=== PATIENT | female | born 1980 | race American Indian/Alaskan Native ===

== ENCOUNTER 2016-11-13 10:40 | Inpatient (IN) | payer BC ==
[~2016-11-13] VITALS: Ht 175.3 cm; Wt 119.3 kg
[2016-11-13] VITALS (9 sets, daily range): BP systolic 101–119; BP diastolic 56–88
[2016-11-13] MEDS ORDERED: SUMA100T3 PO (11:21)
[2016-11-13] MEDS ORDERED: CETI10CA PO (11:22)
[2016-11-13] MEDS ORDERED: MULT1TAB52 PO (11:23)
[2016-11-13] MEDS ORDERED: FLUT9.9S NS (11:23)
[2016-11-13] MEDS ORDERED: DIPH25CA58 PO (11:24)
[2016-11-13] MEDS ORDERED: NAPR220C4 PO (11:24)
[2016-11-13] MEDS: IV RINGERS,LACTATED 1000ML 1,000 ML IV SCH (11:29)
[2016-11-13 11:39] LABS: NEG OBC UR NEG; POS OBC UR POS
[2016-11-13] MEDS ORDERED: SURGICEL HEMOSTAT 4X8 EACH. ONE (12:03)
[2016-11-13] MEDS ORDERED: BUPIVACAINE-EPI 0.5%-1:200000 50 ML VIAL. ONE (12:03)
[2016-11-13] MEDS ORDERED: IOHEXOL 300 MG/ML 50 ML VIAL. ONE (12:03)
[2016-11-13] MEDS ORDERED: PROPOFOL 20 ML IV ONE (13:35)
[2016-11-13] MEDS ORDERED: LIDOCAINE 2% PF Vial for OR 5 ML VIAL. ONE (13:36)
[2016-11-13] MEDS ORDERED: DEXAMETHASONE SOD PHOS 20 MG/5 ML VIAL. ONE (13:36)
[2016-11-13] MEDS ORDERED: ONDANSETRON PF 4 MG/2 ML VIAL. ONE ×2 (13:36→15:39)
[2016-11-13] MEDS ORDERED: MIDAZOLAM HCL/PF 2 MG/2 ML VIAL. ONE (13:39)
[2016-11-13] MEDS ORDERED: fentaNYL PF VIAL 250 MCG/5 ML VIAL ONE (13:40)
--- NOTE | 2016-11-13 15:18 | RAD ---
Indication operative cholangiogram. Protocol study. Assess for choledocholithiasis. Assess for variant anatomy. For members of the Department of surgery fluoroscopy was provided. 5 fluoroscopic spot images were obtained. Fluoroscopy time associated with the imaging was 30 seconds. On all of the images obtained there is a well-defined oval filling defect in the distal common bile duct, in the area of the ampulla, suggesting choledocholithiasis. Some contrast is seen in the duodenum. IMPRESSION: Filling defect, suggesting choledocholithiasis, in the distal common bile duct
[2016-11-13] MEDS ORDERED: NEOSTIGMINE 10 MG/10 ML VIAL. ONE (15:23)
[2016-11-13] MEDS ORDERED: GLYCOPYRROLATE 1 MG/5 ML VIAL. ONE (15:23)
[2016-11-13] MEDS ORDERED: SEVOFLURANE 61 TO 120 MINUTES. IH ONE (15:39)
[2016-11-13] MEDS ORDERED: KETOROLAC 30 MG/ML INJ FOR OR. INJ ONE (15:47)
[2016-11-13] MEDS: IV 1/2 NORMAL SALINE 1,000 ML IV SCH (15:53)
[2016-11-13] MEDS ORDERED: IV RINGERS,LACTATED 1000ML 1,000 ML IV SCH (15:54)
[2016-11-13] MEDS ORDERED: LIDOCAINE 1% 1 ML SYRINGE. ID PRN (16:00)
[2016-11-13] MEDS ORDERED: fentaNYL PF VIAL 100 MCG/2 ML VIAL IV PRN ×2 (16:00)
[2016-11-13] MEDS ORDERED: DEXTROSE 50% 25 GM / 50ML DISP.SYRIN. IV PRN (16:00)
[2016-11-13] MEDS ORDERED: 0.9 % SODIUM CHLORIDE 10 ML DISP.SYRIN. IV PRN (16:00)
[2016-11-13] MEDS ORDERED: MORPHINE SULFATE 2 MG/ML DISP.SYRIN. IV PRN (16:00)
[2016-11-13] MEDS ORDERED: ONDANSETRON PF 4 MG/2 ML VIAL. IV PRN (16:00)
--- NOTE | 2016-11-13 16:01 | PDOC4 ---
Operative Note Operative Note Operative Note: Preoperative Diagnosis: Symptomatic cholelithiasis Postoperative Diagnosis: Symptomatic cholelithiasis, choledocholithiasis Procedure: Laparoscopic cholecystectomy with intraoperative cholangiogram Surgeons: Farzad Drivers License Examiner: Wendy RING Anesthesia: Gen. Estimated Blood Loss: 20 mL Specimen: Gallbladder to pathology Drains: 19 Swazi round Ramon drain to right upper quadrant Complications: None Indications: The patient is a 36-year-old female who is been experiencing recurrent upper abdominal pain consistent with biliary colic. Her evaluation showed multiple gallstones. Surgical treatment was offered by means of a laparoscopic cholecystectomy. The risks of surgery were discussed which include bleeding, infection, bile duct injury, bile leak, pain, the potential for additional surgeries or procedures. The patient understands and would like to proceed. Description: The patient was taken to the operating room and laid supine on the operating table. General anesthesia was performed. The abdomen was prepped with ChloraPrep and draped in a standard surgical fashion. A small infraumbilical incision was made with a scalpel. The Veress needle was then inserted and a pneumoperitoneum was then created. A 5 mm trocar was then inserted and the laparoscope was introduced. In the upper midabdomen a 5 mm trocar was inserted and in the right upper quadrant two 2.3 mm mini lap graspers were inserted. The gallbladder was retracted cephalad. The cystic duct was dissected free from surrounding tissues. One clip was placed on the duct near the gallbladder junction. An opening was made in the duct and a cholangiocatheter placed within and secured with a clip. Using contrast dye and fluoroscopy an intraoperative cholangiogram was performed. Contrast did pass readily into the duodenum however there appeared to be a filling defect in the distal common bile duct suggesting choledocholithiasis. The clip and catheter were then withdrawn. Three clips were placed on the cystic duct and it was divided. The cystic artery was then identified, dissected free, doubly clipped and divided as well. The gallbladder was then mobilized away from the liver with cautery. The superior abdominal 5 millimeter trocar was exchanged for an 11 millimeter trocar. The gallbladder was then placed in an endoscopic bag and extracted at the superior trocar site. To assist with extraction of the gallbladder many of the stones were crushed and removed. The fascia there was closed with an 0 Vicryl suture. A 19 Swazi round Ramon drain was left in the gallbladder fossa with an exit site in the right port incision. This was secured to the skin with 2-0 silk. All blood and irrigation fluid was suctioned and hemostasis was good. The remaining ports were removed and the pneumoperitoneum was relieved. The skin incisions were injected with half percent Marcaine with epinephrine, and all were closed using 4-0 Monocryl suture. Steri-Strips and dressings were then applied. The patient tolerated the procedure well and was sent to the recovery room in stable condition. At the end of the case all counts were correct. STEVE SMITH MD Nov 13, 2016 16:01
[2016-11-13] MEDS: PROCHLORPERAZINE 10 MG/2 ML VIAL. IV PRN ×2 (16:10→16:22)
[2016-11-13] MEDS ORDERED: HYDROmorphone 2 MG/ML VIAL ONE (16:17)
[2016-11-13] MEDS: HYDROmorphone 2 MG/ML VIAL IV PRN ×4 (16:23→17:14)
[2016-11-13] MEDS ORDERED: SCOPOLAMINE 1.5MG PATCH. TD ONE (16:45)
[2016-11-14] MEDS: IV RINGERS,LACTATED 1000ML 1,000 ML IV SCH ×3 (00:50→14:10)
[2016-11-14 03:00] VITALS: BP 117/72
--- NOTE | 2016-11-14 05:17 | ACF ---
Admission Forms Criteria ABDOMINAL PAIN Clinical Indications for Admission to Inpatient Care ( tejon/check or initial the applicable condition/criteria): Admission is indicated for ANY ONE of the following (1)(2)(3)(4)(5)(6): [X]I. Surgery needed that cannot be performed on ambulatory basis [ ]II. Peritoneal signs present (eg, rebound tenderness, rigidity) [ ]III. Evaluation requires patient to not eat or drink for extended period ( eg, more than 24 hours). [ ]IV. Inpatient admission required[B] rather than observation care (see Abdominal Pain: Observation Care guideline as appropriate) because of ANY ONE of the following(7)(8)(9): [ ] a) Hemodynamic instability [ ]b) Severe pain requiring acute inpatient management [ ]c) Identification of etiology or finding that requires inpatient care (eg, aortic dissection, free air,bowel ischemia)(10) [ ]d) Absent bowel sounds with complete ileus (11) [ ]e) Signs of intestinal obstruction[C] [ ]f) Suspected toxic megacolon [ ]g) Severe electrolyte abnormalities requiring inpatient care [ ]h) High fever or infection requiring inpatient admission as indicated by ANY ONE of the following (12)(13): [ ]i) Appropriate outpatient or observation care antimicrobial treatment unavailable, not effective, or not feasible [ ]ii) Documented bacteremia [ ]iii) Temperature greater than 104.9 degrees F (40.5 degrees C) (oral) [ ]iv) Temperature greater than 103.1 degrees F (39.5 degrees C) ( oral) or less than 96.8 degrees F (36 degrees C) (rectal) that does not respond to all emergency treatment measures [ ]i) IV fluid required rather than oral rehydration to replace significant ongoing (eg, for greater than 24 hours) losses (greater than 3 L/m2 per day)(14)(15) [ ]j) Percutaneous or open drainage (eg, abscess, biliary tract) procedures [ ]k) Parenteral nutrition regimen that must be implemented on inpatient basis [ ]l) Other condition, treatment, or monitoring requiring inpatient admission Extended stay beyond goal length of stay may be needed for (1)(3)(4)(10)(16): [ ]a) Surgery (e.g., colectomy, revascularization procedure) [ ]b) Persistent abdominal pain with suspected intra-abdominal process [ ]c) Diagnosed condition requiring continued stay (e.g., pancreatitis, complicated diverticulitis) The original [facility] content created by [facility] has been revised. The portions of the content which have been revised are identified through the use of italic text, and [facility] has neither reviewed nor approved the modified material.All other unmodified content is copyright [facility]. Please see references footnoted in the original [facility] edition 2014 Admission Criteria Met?: Yes ROSS WOODRUFF Nov 14, 2016 05:17
[2016-11-14] MEDS: IV 1/2 NORMAL SALINE 1,000 ML IV SCH ×2 (05:56→14:59)
[2016-11-14] MEDS: ONDANSETRON PF 4 MG/2 ML VIAL. IV PRN (05:59)
[2016-11-14] MEDS: oxyCODONE/APAP 5/325 1 TAB TABLET PO PRN ×3 (05:59→19:21)
[2016-11-14 07:00] VITALS: BP 111/69
[2016-11-14 09:08] LABS: BASO % 0 % (0-3); EOS % 0 % (0-3); HEMATOCRIT 38.2 % (36.0-47.0); LYMPH # 0.9 x10^3/uL (1.0-4.8); LYMPH % 8 % (24-48); MEAN CORPUSCULAR HEMOGLOBIN 32 pg (25-35); MEAN CORPUSCULAR HGB CONC 34 g/dL (31-37); MEAN CORPUSCULAR VOLUME 94 fL (79-100); MONO % 5 % (0-9); NEUT % 87 % (31-73); PLATELET COUNT 317 x10^3/uL (140-400); RED BLOOD COUNT 4.06 x10^6/uL (3.50-5.40); RED CELL DISTRIBUTION WIDTH 12.7 % (11.5-14.5)
[2016-11-14 09:26] LABS: ALBUMIN 3.2 g/dL (3.4-5.0); ALBUMIN/GLOBULIN RATIO 0.8 (1.0-1.7); CALCIUM 8.8 mg/dL (8.5-10.1); CREATININE 0.7 mg/dL (0.6-1.0); GFR 94.2; POTASSIUM 3.9 mmol/L (3.5-5.1); TOTAL BILIRUBIN 0.6 mg/dL (0.2-1.0)
--- NOTE | 2016-11-14 09:26 | PDOC2 ---
GI CONSULT Reason For Consult: Choledocholithiasis HPI: HPI: 36 y/o female who underwent lap regan yesterday w/ Dr. Panda for symptomatic cholelithiasis. IOC suggestive of choledocholithiasis. Has had upper abd pain , vomiting, and new onset acid reflux x 3 weeks. This morning has epigastric/ right chest discomfort. No previous EGD or colonoscopy. No liver or pancreatic history. Tried pantoprazole and Mylanta for reflux, hasn't needed in a few days. No NSAIDs. Is NPO this morning. PMH: PMH: migraines, appendectomy FH: Family History: No pertinent hx (denies GI cancers) Social History: Smoke: No ALCOHOL: none Drugs: None ROS: GEN: Denies fevers, chills, sweats HEENT: Denies blurred vision, sore throat CV: Denies chest pain RESP: Denies shortness of air, cough GI: Per HPI : Denies hematuria, dysuria ENDO: Denies weight changes NEURO: Denies confusion, dizziness MSK: Denies weakness, joint pain/swelling SKIN: Denies jaundice, pruritus Vitals: Vitals: Vital Signs Date Time Temp Pulse Resp B/P (MAP) Pulse Ox O2 Delivery O2 Flow Rate FiO2 11/14/16 07:00 98.1 67 18 111/69 (83) 91 Room Air 98.1 11/13/16 20:00 2.0 Labs: Labs: Laboratory Tests Test 11/13/16 10:55 11/14/16 08:50 Urine Test Negative (NEG) White Blood Count 11.0 x10^3/uL (4.0-11.0) Red Blood Count 4.06 x10^6/uL (3.50-5.40) Hemoglobin 13.0 g/dL (12.0-15.5) Hematocrit 38.2 % (36.0-47.0) Mean Corpuscular Volume 94 fL (79-100) Mean Corpuscular Hemoglobin 32 pg (25-35) Mean Corpuscular Hemoglobin Concent 34 g/dL (31-37) Red Cell Distribution Width 12.7 % (11.5-14.5) Platelet Count 317 x10^3/uL (140-400) Neutrophils (%) (Auto) 87 % (31-73) Lymphocytes (%) (Auto) 8 % (24-48) Monocytes (%) (Auto) 5 % (0-9) Eosinophils (%) (Auto) 0 % (0-3) Basophils (%) (Auto) 0 % (0-3) Neutrophils # (Auto) 9.6 x10^3uL (1.8-7.7) Lymphocytes # (Auto) 0.9 x10^3/uL (1.0-4.8) Monocytes # (Auto) 0.5 x10^3/uL (0.0-1.1) Eosinophils # (Auto) 0.0 x10^3/uL (0.0-0.7) Basophils # (Auto) 0.0 x10^3/uL (0.0-0.2) Allergies: Coded Allergies: Penicillins (Verified Allergy, Severe, ANAPHYLAXIS, 11/13/16) cephalexin (Verified Allergy, Severe, THROAT SWELLED UP, 11/13/16) cranberry (Verified Allergy, Severe, Can't breath, swelled up, 11/13/16) erythromycin base (Verified Allergy, Severe, ANAPHYLAXIS, 11/13/16) honey (Verified Allergy, Severe, Can't breath,swelled up, 11/13/16) latex (Verified Allergy, Severe, CAN'T BREATH, WELTS, 11/13/16) nick (Verified Allergy, Severe, Can't breath, swelled up, 11/13/16) nickel (Verified Allergy, Severe, Full of rash on site,itching, 11/13/16) sulfamethoxazole (Verified Allergy, Severe, ANAPHYLAXIS, 11/13/16) trimethoprim (Verified Allergy, Severe, ANAPHYLAXIS, 11/13/16) Medications: Current Medications Medications (Trade) Dose Ordered Sig/Elia Route PRN Reason Start Time Stop Time Status Last Admin Dose Admin Ringer's Solution 1,000 ml @ 75 mls/hr [id number] IV 11/13/16 11:30 11/13/16 11:29 Iohexol (Omnipaque 300 Mg/ml) 50 ml STK-MED ONCE .ROUTE 11/13/16 12:03 11/13/16 12:04 DC 11/13/16 15:06 Bupivacaine HCl/ Epinephrine Bitart (Marcaine-Epi 0.5%-1:[id number]) 50 ml STK-MED ONCE .ROUTE 11/13/16 12:03 11/13/16 12:04 DC 11/13/16 14:37 Hydromorphone HCl (Dilaudid) 0.5 mg PRN Q10MIN PRN IV SEV PAIN, Second choice 11/13/16 16:00 11/13/16 22:00 DC 11/13/16 17:14 Prochlorperazine Edisylate (Compazine) 5 mg PACU PRN PRN IV NAUSEA, MRX1 11/13/16 16:00 11/13/16 22:00 DC 11/13/16 16:22 Sodium Chloride 1,000 ml @ 80 mls/hr [id number] IV 11/13/16 15:53 11/14/16 05:56 Oxycodone/ Acetaminophen (Percocet 5/325) 1 tab PRN Q4HRS PRN PO MILD PAIN, 1ST CHOICE 11/13/16 16:00 11/14/16 05:59 Ondansetron HCl (Zofran) 4 mg PRN Q6HRS PRN IV NAUESA, 1ST CHOICE 11/13/16 16:00 11/14/16 05:59 Scopolamine (Transderm-Scop) 1 patch 1X ONCE TD 11/13/16 16:45 11/13/16 16:48 DC 11/13/16 16:45 Imaging: Imaging: IOC 11/13/16 IMPRESSION: Filling defect, suggesting choledocholithiasis, in the distal common bile duct. PE: GEN: NAD, whispers, overweight HEENT: Atraumatic, PERRL LUNGS: CTAB HEART: RRR ABD: BS quiet, diffusely tender to even placement of stethoscope, drain serosang EXTREMITY: No edema SKIN: No rashes, no jaundice NEURO/PSYCH: A & O 3 A/P: A/P: S/p cholecystectomy 11/13/16 Choledocholithiasis Upper abd pain -- Keep NPO. Checking CBC, CMP, INR. ERCP this afternoon - d/w RN, GI lab. NAVARRO HIGUERA Nov 14, 2016 09:26
[2016-11-14 09:41] LABS: DIRECT BILIRUBIN 0.2 mg/dL (0.0-0.2)
[2016-11-14 09:42] LABS: INR 1.1 (0.8-1.1); PROTHROMBIN TIME PATIENT 13.9 SEC (11.7-14.0)
[2016-11-14 09:50] LABS: PLT ESTIMATE ADEQUATE (ADEQUATE)
[2016-11-14] MEDS: HYDROmorphone 2 MG/ML VIAL IV PRN ×2 (10:26→14:56)
[2016-11-14 11:00] VITALS: BP 103/55
[2016-11-14] MEDS ORDERED: levoFLOXacin 500mg PREMIX 500 MG/100 ML BAG IV ONE (12:02)
[2016-11-14] MEDS ORDERED: fentaNYL PF VIAL 100 MCG/2 ML VIAL ONE (12:07)
[2016-11-14] MEDS ORDERED: LIDOCAINE 2% PF Vial for OR 5 ML VIAL. ONE (12:07)
[2016-11-14] MEDS ORDERED: PROPOFOL 20 ML IV ONE (12:07)
[2016-11-14] MEDS ORDERED: SUCCINYLCHOLINE 200 MG/10 ML VIAL. ONE (12:08)
[2016-11-14] MEDS ORDERED: IOHEXOL 300 MG/ML 50 ML VIAL. ONE (12:13)
--- NOTE | 2016-11-14 13:03 | PDOC ---
DANIEL LEWIS ORDERING BOX OPERATOR 11/14/16 1303: SURGICAL PROGRESS NOTE Subjective pt not seen down for ERPC will FU in AM Vital Signs Vital Signs Date Time Temp Pulse Resp B/P (MAP) Pulse Ox O2 Delivery O2 Flow Rate FiO2 11/14/16 11:55 99 80 18 96 99.0 11/14/16 11:55 Room Air 2.0 11/14/16 11:00 103/55 (71) Labs Laboratory Tests Test 11/13/16 10:55 11/14/16 08:50 Urine Test Negative (NEG) White Blood Count 11.0 x10^3/uL (4.0-11.0) Red Blood Count 4.06 x10^6/uL (3.50-5.40) Hemoglobin 13.0 g/dL (12.0-15.5) Hematocrit 38.2 % (36.0-47.0) Mean Corpuscular Volume 94 fL (79-100) Mean Corpuscular Hemoglobin 32 pg (25-35) Mean Corpuscular Hemoglobin Concent 34 g/dL (31-37) Red Cell Distribution Width 12.7 % (11.5-14.5) Platelet Count 317 x10^3/uL (140-400) Neutrophils (%) (Auto) 87 % (31-73) Lymphocytes (%) (Auto) 8 % (24-48) Monocytes (%) (Auto) 5 % (0-9) Eosinophils (%) (Auto) 0 % (0-3) Basophils (%) (Auto) 0 % (0-3) Neutrophils # (Auto) 9.6 x10^3uL (1.8-7.7) Lymphocytes # (Auto) 0.9 x10^3/uL (1.0-4.8) Monocytes # (Auto) 0.5 x10^3/uL (0.0-1.1) Eosinophils # (Auto) 0.0 x10^3/uL (0.0-0.7) Basophils # (Auto) 0.0 x10^3/uL (0.0-0.2) Segmented Neutrophils % 87 % (35-66) Band Neutrophils % 3 % (0-9) Lymphocytes % 6 % (24-48) Monocytes % 4 % (0-10) Platelet Estimate Adequate (ADEQUATE) Prothrombin Time 13.9 SEC (11.7-14.0) Prothromb Time International Ratio 1.1 (0.8-1.1) Sodium Level 139 mmol/L (136-145) Potassium Level 3.9 mmol/L (3.5-5.1) Chloride Level 105 mmol/L (98-107) Carbon Dioxide Level 27 mmol/L (21-32) Anion Gap 7 (6-14) Blood Urea Nitrogen 9 mg/dL (7-20) Creatinine 0.7 mg/dL (0.6-1.0) Estimated GFR (Cockcroft-Gault) 94.2 BUN/Creatinine Ratio 13 (6-20) Glucose Level 115 mg/dL (70-99) Calcium Level 8.8 mg/dL (8.5-10.1) Total Bilirubin 0.6 mg/dL (0.2-1.0) Direct Bilirubin 0.2 mg/dL (0.0-0.2) Aspartate Amino Transf (AST/SGOT) 37 U/L (15-37) Alanine Aminotransferase (ALT/SGPT) 63 U/L (14-59) Alkaline Phosphatase 72 U/L (46-116) Total Protein 7.0 g/dL (6.4-8.2) Albumin 3.2 g/dL (3.4-5.0) Albumin/Globulin Ratio 0.8 (1.0-1.7) Laboratory Tests Test 11/14/16 08:50 White Blood Count 11.0 x10^3/uL (4.0-11.0) Red Blood Count 4.06 x10^6/uL (3.50-5.40) Hemoglobin 13.0 g/dL (12.0-15.5) Hematocrit 38.2 % (36.0-47.0) Mean Corpuscular Volume 94 fL (79-100) Mean Corpuscular Hemoglobin 32 pg (25-35) Mean Corpuscular Hemoglobin Concent 34 g/dL (31-37) Red Cell Distribution Width 12.7 % (11.5-14.5) Platelet Count 317 x10^3/uL (140-400) Neutrophils (%) (Auto) 87 % (31-73) Lymphocytes (%) (Auto) 8 % (24-48) Monocytes (%) (Auto) 5 % (0-9) Eosinophils (%) (Auto) 0 % (0-3) Basophils (%) (Auto) 0 % (0-3) Neutrophils # (Auto) 9.6 x10^3uL (1.8-7.7) Lymphocytes # (Auto) 0.9 x10^3/uL (1.0-4.8) Monocytes # (Auto) 0.5 x10^3/uL (0.0-1.1) Eosinophils # (Auto) 0.0 x10^3/uL (0.0-0.7) Basophils # (Auto) 0.0 x10^3/uL (0.0-0.2) Segmented Neutrophils % 87 % (35-66) Band Neutrophils % 3 % (0-9) Lymphocytes % 6 % (24-48) Monocytes % 4 % (0-10) Platelet Estimate Adequate (ADEQUATE) Prothrombin Time 13.9 SEC (11.7-14.0) Prothromb Time International Ratio 1.1 (0.8-1.1) Sodium Level 139 mmol/L (136-145) Potassium Level 3.9 mmol/L (3.5-5.1) Chloride Level 105 mmol/L (98-107) Carbon Dioxide Level 27 mmol/L (21-32) Anion Gap 7 (6-14) Blood Urea Nitrogen 9 mg/dL (7-20) Creatinine 0.7 mg/dL (0.6-1.0) Estimated GFR (Cockcroft-Gault) 94.2 BUN/Creatinine Ratio 13 (6-20) Glucose Level 115 mg/dL (70-99) Calcium Level 8.8 mg/dL (8.5-10.1) Total Bilirubin 0.6 mg/dL (0.2-1.0) Direct Bilirubin 0.2 mg/dL (0.0-0.2) Aspartate Amino Transf (AST/SGOT) 37 U/L (15-37) Alanine Aminotransferase (ALT/SGPT) 63 U/L (14-59) Alkaline Phosphatase 72 U/L (46-116) Total Protein 7.0 g/dL (6.4-8.2) Albumin 3.2 g/dL (3.4-5.0) Albumin/Globulin Ratio 0.8 (1.0-1.7) STEVE SMITH MD 11/14/16 1330: SURGICAL PROGRESS NOTE Assessment/Plan Agree with above Problems: DANIEL LEWIS APRN Nov 14, 2016 13:03 STEVE SMITH MD Nov 14, 2016 13:30
--- NOTE | 2016-11-14 13:13 | PDOC4 ---
PROCEDURE Procedure ERCP/ES/balloon stone extraction. IND: abnormal IOC Meds: GETA per anesthesia. Findings: G,D normal given nature of scope. papilla normal. CBD--small stone lower third. ES done and balloon sweep x 3. Stone seen in duodenal lumen, josué-like. lev well. IMP: choledocholithiasis, resolved. REC: clears today, ADAT tomorrow if OK. Thanks. ALEJO HAYNES MD Nov 14, 2016 13:13
[2016-11-14] MEDS ORDERED: IOHEXOL 300 MG/ML 50 ML VIAL. INT CAT ONE (13:17)
--- NOTE | 2016-11-14 13:34 | RAD ---
Intraoperative fluoroscopic support 11/14/2016 Indication: ERCP Discussion: Intraoperative fluoroscopic spot provided during ERCP. Please refer to operative notes for intraprocedural details and imaging findings. 2 static images were submitted to PACS. Total fluoroscopy time was 2 minutes 40 seconds. Impression: Intraoperative fluoroscopic support was provided as described.
[2016-11-14 15:00] VITALS: BP 116/65
[2016-11-14 19:00] VITALS: BP 94/47
[2016-11-14 23:00] VITALS: BP 96/55
[2016-11-15] MEDS: IV RINGERS,LACTATED 1000ML 1,000 ML IV SCH ×4 (01:35→16:50)
[2016-11-15 03:00] VITALS: BP 97/58
[2016-11-15] MEDS: IV 1/2 NORMAL SALINE 1,000 ML IV SCH ×2 (06:23→18:42)
[2016-11-15] MEDS: oxyCODONE/APAP 5/325 1 TAB TABLET PO PRN ×3 (06:34→20:25)
[2016-11-15 07:20] VITALS: BP 113/64
[2016-11-15 11:00] VITALS: BP 96/51
--- NOTE | 2016-11-15 11:38 | PDOC ---
Subjective: Subjective: Right-sided pain, some nausea this morning. Not interested in eating. Urinating and passing gas. Wants drain out. Objective: Objective: On full liquids. Vital Signs: Vital Signs Date Time Temp Pulse Resp B/P (MAP) Pulse Ox O2 Delivery O2 Flow Rate FiO2 11/15/16 07:20 97.9 69 18 113/64 (80) 96 Room Air 97.9 11/14/16 13:23 2 Imaging: ERCP 11/14/16 Findings: G,D normal given nature of scope. papilla normal. CBD--small stone lower third. ES done and balloon sweep x 3. Stone seen in duodenal lumen, josué-like. IMP: choledocholithiasis, resolved. PE: GEN: NAD, was asleep LUNGS: CTAB HEART: RRR ABD: incisional/drain tenderness - seems better than yesterday, BS+ NEURO/PSYCH: A & O 3 A/P: Choledocholithiasis s/p ERCP, ES, balloon sweep Abd pain Nausea -- Still c/o pain, will check lipase. If normal, ADAT. NAVARRO HIGUERA Nov 15, 2016 11:38
[2016-11-15] MEDS ORDERED: DEXAMETHASONE SOD PHOS 20 MG/5 ML VIAL. ONE (12:00)
--- NOTE | 2016-11-15 12:41 | PDOC ---
DANIEL LEWIS CUSTOM VAN CONVERTER 11/15/16 1241: SURGICAL PROGRESS NOTE Subjective taking some liquids incisional pain, meds take edge off Vital Signs Vital Signs Date Time Temp Pulse Resp B/P (MAP) Pulse Ox O2 Delivery O2 Flow Rate FiO2 11/15/16 11:00 98.6 72 16 96/51 (66) 90 Room Air 98.6 11/14/16 13:23 2 General: Alert, Oriented X3, Cooperative, No acute distress Abdomen: Soft, Other (drain serosang, lap sites c/d/i, no ertyhema, incisional TTP) Labs Laboratory Tests Test 11/14/16 08:50 White Blood Count 11.0 x10^3/uL (4.0-11.0) Red Blood Count 4.06 x10^6/uL (3.50-5.40) Hemoglobin 13.0 g/dL (12.0-15.5) Hematocrit 38.2 % (36.0-47.0) Mean Corpuscular Volume 94 fL (79-100) Mean Corpuscular Hemoglobin 32 pg (25-35) Mean Corpuscular Hemoglobin Concent 34 g/dL (31-37) Red Cell Distribution Width 12.7 % (11.5-14.5) Platelet Count 317 x10^3/uL (140-400) Neutrophils (%) (Auto) 87 % (31-73) Lymphocytes (%) (Auto) 8 % (24-48) Monocytes (%) (Auto) 5 % (0-9) Eosinophils (%) (Auto) 0 % (0-3) Basophils (%) (Auto) 0 % (0-3) Neutrophils # (Auto) 9.6 x10^3uL (1.8-7.7) Lymphocytes # (Auto) 0.9 x10^3/uL (1.0-4.8) Monocytes # (Auto) 0.5 x10^3/uL (0.0-1.1) Eosinophils # (Auto) 0.0 x10^3/uL (0.0-0.7) Basophils # (Auto) 0.0 x10^3/uL (0.0-0.2) Segmented Neutrophils % 87 % (35-66) Band Neutrophils % 3 % (0-9) Lymphocytes % 6 % (24-48) Monocytes % 4 % (0-10) Platelet Estimate Adequate (ADEQUATE) Prothrombin Time 13.9 SEC (11.7-14.0) Prothromb Time International Ratio 1.1 (0.8-1.1) Sodium Level 139 mmol/L (136-145) Potassium Level 3.9 mmol/L (3.5-5.1) Chloride Level 105 mmol/L (98-107) Carbon Dioxide Level 27 mmol/L (21-32) Anion Gap 7 (6-14) Blood Urea Nitrogen 9 mg/dL (7-20) Creatinine 0.7 mg/dL (0.6-1.0) Estimated GFR (Cockcroft-Gault) 94.2 BUN/Creatinine Ratio 13 (6-20) Glucose Level 115 mg/dL (70-99) Calcium Level 8.8 mg/dL (8.5-10.1) Total Bilirubin 0.6 mg/dL (0.2-1.0) Direct Bilirubin 0.2 mg/dL (0.0-0.2) Aspartate Amino Transf (AST/SGOT) 37 U/L (15-37) Alanine Aminotransferase (ALT/SGPT) 63 U/L (14-59) Alkaline Phosphatase 72 U/L (46-116) Total Protein 7.0 g/dL (6.4-8.2) Albumin 3.2 g/dL (3.4-5.0) Albumin/Globulin Ratio 0.8 (1.0-1.7) Assessment/Plan s/p lap regan ERCP lipase pending--if normal advance diet possible DC today if tolerating diet/pain controlled Problems: STEVE SMITH MD 11/17/162023: SURGICAL PROGRESS NOTE Assessment/Plan Agree with above Problems: DANIEL LEWIS CUSTOM VAN CONVERTER Nov 15, 2016 12:41 STEVE SMITH MD Nov 17, 2016 20:24
[2016-11-15] MEDS: ONDANSETRON PF 4 MG/2 ML VIAL. IV PRN (12:49)
--- NOTE | 2016-11-15 13:05 | PATHOLOGY ---
PATHOLOGY REPORT * * * * * * * * FINAL DIAGNOSIS: Gallbladder (gallbladder and contents, cholecystectomy): - Chronic cholecystitis with cholelithiasis. (SHA:tereza; 11/15/2016) REPORT ELECTRONICALLY SIGNED BY: Zeb Barnes M.D. DATE/TIME: 11/15/2016 13:04 * * * * * * * * GROSS PATHOLOGY: Received in formalin labeled "Lauren Treviño, gallbladder and contents," is a 10.5 x 3.4 x 1.2 cm, previously opened gallbladder with purple montoya serosal surfaces. Opening the gallbladder reveals dobbins brown, velvety mucosa and an average wall thickness of 0.3 cm. Calculi are present and no masses are noted grossly. Repeat Photocomposing Machine Operator sections from the body and fundus are submitted along with the proximal margin in cassette A1. INITIAL CPT CODE(S): A; 12164 Professional services performed [place] [facility] [place] [address] Technical services performed by [facility] at [address] [place] [address], [facility] [address] [address]. SPECIMEN(S) RECEIVED: A.Gallbladder and contents CLINICAL HISTORY: Symptomatic cholelithiasis PATIENT: LAUREN TREVIÑO /AGE: 608/19/1980 (Age: 36) PATIENT #: [id number] ALT CASE #: SPECIMEN COLLECTION DATE: 11/13/2016 SPECIMEN RECEIVED DATE: 11/14/2016 [facility] - [address] [place] [address] - PHONE: [phone] * * * END OF REPORT * * *
[2016-11-15 15:21] VITALS: BP 98/55
[2016-11-15 19:15] VITALS: BP 109/65
[2016-11-15 23:22] VITALS: BP 108/71
[2016-11-16 02:37] VITALS: BP 93/49
[2016-11-16] MEDS: IV 1/2 NORMAL SALINE 1,000 ML IV SCH ×2 (06:23→18:53)
[2016-11-16 07:00] VITALS: BP 111/72
--- NOTE | 2016-11-16 09:44 | PDOC ---
SURGICAL PROGRESS NOTE Subjective Pt with c/o epigastric, worsened by cough with allergies, lev min PO, nausea Vital Signs Vital Signs Date Time Temp Pulse Resp B/P (MAP) Pulse Ox O2 Delivery O2 Flow Rate FiO2 11/16/16 08:00 Room Air 11/16/16 07:00 97.7 55 18 111/72 (85) 92 97.7 General: Alert, Oriented X3, Cooperative, mild distress Abdomen: Soft, Other (TTP epigastric, incision c/d/i) Labs Laboratory Tests Test 11/15/16 12:20 Lipase 457 U/L (73-393) Laboratory Tests Test 11/15/16 12:20 Lipase 457 U/L (73-393) Problem List s/p lap regan and ERCP cont pain control and ADAT once nausea improved Problems: ANAI GARCIA MD Nov 16, 2016 09:44
--- NOTE | 2016-11-16 10:30 | PDOC ---
G I PROGRESS NOTE Subjective Thinks allergies are kicking up. Coughing with resultant incisional pain. Not eating much. Physical Exam Lungs clear. RRR Abdomen soft, incisional tenderness. ЮЛИЯ output serosanguinous. Review of Relevant I have reviewed the following items gi (where applicable) has been applied. Labs Laboratory Tests Test 11/15/16 12:20 Lipase 457 U/L (73-393) Laboratory Tests Test 11/15/16 12:20 Lipase 457 U/L (73-393) Medications Current Medications Levofloxacin/ Dextrose 150 ml @ 100 mls/hr 1X PREOP PRN IV PRIOR TO SURGERY Last administered on 11/13/16 14:29; Start 11/13/16 at 08:00; Stop 11/14/16 at 16:59; Status DC Ringer's Solution 1,000 ml @ 75 mls/hr [id number] IV Last administered on 11:29; Start 11/13/16 at 11:30; Stop 11/15/16 at 18:45; Status DC Cellulose 1 each STK-MED ONCE .ROUTE ; Start 11/13/16 at 12:03; Stop 11/13/16 at 12:04; Status DC Iohexol (Omnipaque 300 Mg/ml) 50 ml STK-MED ONCE .ROUTE Last administered on 15:06; Start 11/13/16 at 12:03; Stop 11/13/16 at 12:04; Status DC Bupivacaine HCl/ Epinephrine Bitart (Marcaine-Epi 0.5%-1:[id number]) 50 ml STK-MED ONCE .ROUTE Last administered on 11/13/16 14:37; Start 11/13/16 at 12:03; Stop 11/13/16 at 12:04; Status DC Propofol 20 ml @ As Directed STK-MED ONCE IV ; Start 11/13/16 at 13:35; Stop at 13:36; Status DC Lidocaine HCl (Lidocaine Pf 2% Vial) 5 ml STK-MED ONCE .ROUTE ; Start 11/13/16 at 13:36; Stop 11/13/16 at 13:37; Status DC Dexamethasone Sodium Phosphate (Decadron) 20 mg STK-MED ONCE .ROUTE ; Start at 13:36; Stop 11/13/16 at 13:37; Status DC Ondansetron HCl (Zofran) 4 mg STK-MED ONCE .ROUTE ; Start 11/13/16 at 13:36; Stop 11/13/16 at 13:37; Status DC Midazolam HCl (Versed) 2 mg STK-MED ONCE .ROUTE ; Start 11/13/16 at 13:39; Stop 11/13/16 at 13:40; Status DC Fentanyl Citrate (Fentanyl 5ml Vial) 250 mcg STK-MED ONCE .ROUTE ; Start at 13:40; Stop 11/13/16 at 13:41; Status DC Neostigmine Methylsulfate (Bloxiverz) 10 mg STK-MED ONCE .ROUTE ; Start at 15:23; Stop 11/13/16 at 15:24; Status DC Glycopyrrolate (Robinul) 1 mg STK-MED ONCE .ROUTE ; Start 11/13/16 at 15:23; Stop 11/13/16 at 15:24; Status DC Ondansetron HCl (Zofran) 4 mg STK-MED ONCE .ROUTE ; Start 11/13/16 at 15:39; Stop 11/13/16 at 15:40; Status DC Sevoflurane (Ultane) 60 ml STK-MED ONCE IH ; Start 11/13/16 at 15:39; Stop 11/13 at 15:40; Status DC Ketorolac Tromethamine (Toradol For Or Only) 30 mg STK-MED ONCE INJ ; Start at 15:47; Stop 11/13/16 at 15:48; Status DC Ondansetron HCl (Zofran) 4 mg PRN Q6HRS PRN IV NAUSEA/VOMITING; Start 11/13/16 at 16:00; Stop 11/13/16 at 22:00; Status DC Fentanyl Citrate (Fentanyl 2ml Vial) 25 mcg PRN Q5MIN PRN IV MILD PAIN; Start 11/13/16 at 16:00; Stop 11/13/16 at 22:00; Status DC Fentanyl Citrate (Fentanyl 2ml Vial) 50 mcg PRN Q5MIN PRN IV MODERATE PAIN; Start 11/13/16 at 16:00; Stop 11/13/16 at 22:00; Status DC Morphine Sulfate 1 mg PRN Q10MIN PRN IV SEVERE PAIN; Start 11/13/16 at 16:00; Stop 11/13/16 at 22:00; Status DC Ringer's Solution 1,000 ml @ 30 mls/hr Q24H IV ; Start 11/13/16 at 15:54; Stop 11/14/16 at 03:53; Status DC Lidocaine HCl 2 ml PRN 1X PRN ID PRIOR TO IV START; Start 11/13/16 at 16:00; Stop 11/13/16 at 22:00; Status DC Hydromorphone HCl (Dilaudid) 0.5 mg PRN Q10MIN PRN IV SEV PAIN, Second choice Last administered on 11/13/16 17:14; Start 11/13/16 at 16:00; Stop 11/13/16 at 22:00; Status DC Prochlorperazine Edisylate (Compazine) 5 mg PACU PRN PRN IV NAUSEA, MRX1 Last administered on 11/13/16 16:22; Start 11/13/16 at 16:00; Stop 11/13/16 at 22:00 ; Status DC Sodium Chloride (Normal Saline Flush) 3 ml QSHIFT PRN IV AFTER MEDS AND BLOOD DRAWS; Start 11/13/16 at 16:00 Sodium Chloride 1,000 ml @ 80 mls/hr [id number] IV Last administered on 18:42; Start 11/13/16 at 15:53 Dextrose (Dextrose 50%-Water Syringe) 12.5 gm PRN Q15MIN PRN IV SEE COMMENTS; Start 11/13/16 at 16:00 Oxycodone/ Acetaminophen (Percocet 5/325) 1 tab PRN Q4HRS PRN PO MILD PAIN, 1ST CHOICE Last administered on 11/15/16 06:34; Start 11/13/16 at 16:00 Oxycodone/ Acetaminophen (Percocet 5/325) 2 tab PRN Q4HRS PRN PO MODERATE PAIN , SEVERE PAIN Last administered on 11/15/16 20:25; Start 11/13/16 at 16:00 Hydromorphone HCl (Dilaudid) 0.2 mg PRN Q1HR PRN IV PAIN Last administered on 14:56; Start 11/13/16 at 16:00 Ondansetron HCl (Zofran) 4 mg PRN Q6HRS PRN IV NAUESA, 1ST CHOICE Last administered on 11/15/16t 12:49; Start 11/13/16 at 16:00 Hydromorphone HCl (Dilaudid) 2 mg STK-MED ONCE .ROUTE ; Start 11/13/16 at 16:17 ; Stop 11/13/16 at 16:18; Status DC Scopolamine (Transderm-Scop) 1 patch 1X ONCE TD Last administered on t 16:45; Start 11/13/16 at 16:45; Stop 11/13/16 at 16:48; Status DC Levofloxacin/ Dextrose 100 ml @ 100 mls/hr 1X ONCE IV ; Start 11/14/16 at 12: 00; Stop 11/14/16 at 13:23; Status DC Ringer's Solution 1,000 ml @ 75 mls/hr [id number] IV ; Start 11/14/16 at 12:15; Stop 11/15/16 at 18:45; Status DC Fentanyl Citrate (Fentanyl 2ml Vial) 100 mcg STK-MED ONCE .ROUTE ; Start at 12:07; Stop 11/14/16 at 12:08; Status DC Propofol 20 ml @ As Directed STK-MED ONCE IV ; Start 11/14/16 at 12:07; Stop at 12:08; Status DC Lidocaine HCl (Lidocaine Pf 2% Vial) 5 ml STK-MED ONCE .ROUTE ; Start 11/14/16 at 12:07; Stop 11/14/16 at 12:08; Status DC Succinylcholine Chloride (Anectine) 200 mg STK-MED ONCE .ROUTE ; Start 11/14/16 at 12:08; Stop 11/14/16 at 12:09; Status DC Iohexol (Omnipaque 300 Mg/ml) 50 ml STK-MED ONCE .ROUTE ; Start 11/14/16 at 12: 13; Stop 11/14/16 at 12:14; Status DC Iohexol (Omnipaque 300 Mg/ml) 50 ml STK-MED ONCE INT CAT Last administered on 13:17; Start 11/14/16 at 13:17; Stop 11/14/16 at 13:23; Status DC Levofloxacin/ Dextrose (LEVAQUIN 500mg PREMIX) 500 mg STK-MED ONCE IV ; Start at 12:02; Stop 11/15/16 at 08:43; Status DC Cetirizine HCl (ZyrTEC) 10 mg DAILY PO ; Start 11/17/16 at 09:00 Active Scripts Active Reported Aleve (Naproxen Sodium) 220 Mg Capsule 220 Mg PO BID PRN Benadryl (Diphenhydramine Hcl) 25 Mg Capsule 1 Cap PO QHS PRN Multivitamins (Multivitamin) 1 Each Tablet 1 Tab PO DAILY Flonase Allergy Relief (Fluticasone Propionate) 9.9 Ml [place].susp 2 Sprays NS DAILY Zyrtec (Cetirizine Hcl) 10 Mg Capsule 10 Mg PO DAILY Imitrex (Sumatriptan Succinate) 100 Mg Tablet 1 Tab PO UD PRN Vitals/I & O Vital Sign - Last 24 Hours 11/15/16 11/15/16 11/15/16 11/15/16 11:00 15:21 19:15 20:00 Temp 98.6 97.9 97.9 98.6 97.9 97.9 Pulse 72 60 65 Resp 16 18 18 B/P (MAP) 96/51 (66) 98/55 (69) 109/65 (80) Pulse Ox 90 95 95 O2 Delivery Room Air Room Air Room Air Room Air 11/15/16 11/15/16 11/15/16 11/16/16 20:25 21:30 23:22 02:37 Temp 98.1 98.7 98.1 98.7 Pulse 80 64 Resp 16 16 16 16 B/P (MAP) 108/71 (83) 93/49 (64) Pulse Ox 91 93 O2 Delivery Room Air Room Air Room Air Room Air 11/16/16 11/16/16 07:00 08:00 Temp 97.7 97.7 Pulse 55 Resp 18 B/P (MAP) 111/72 (85) Pulse Ox 92 O2 Delivery Room Air Room Air Assessment Cholelithiasis, resolved after ERCP/extraction. Plan of Care: Continue current Tx, ALEJO Mazariegos MD Nov 16, 2016 10:30
[2016-11-16 11:00] VITALS: BP 110/65
[2016-11-16] MEDS: oxyCODONE/APAP 5/325 1 TAB TABLET PO PRN ×2 (11:28→21:37)
[2016-11-16] MEDS: CETIRIZINE HCL 10 MG TABLET. PO SCH (12:31)
[2016-11-16] MEDS: ONDANSETRON PF 4 MG/2 ML VIAL. IV PRN (15:45)
[2016-11-16 16:00] VITALS: BP 103/67
[2016-11-16 19:00] VITALS: BP 100/63
[2016-11-16 23:00] VITALS: BP_SYST 102; BP_SYST 114; BP_DIAS 64; BP_DIAS 70
[2016-11-17 06:57] VITALS: BP 89/55
[2016-11-17] MEDS: IV 1/2 NORMAL SALINE 1,000 ML IV SCH ×3 (07:23→17:25)
[2016-11-17] MEDS: oxyCODONE/APAP 5/325 1 TAB TABLET PO PRN ×3 (08:35→23:50)
[2016-11-17] MEDS: CETIRIZINE HCL 10 MG TABLET. PO SCH (08:35)
[2016-11-17 11:00] VITALS: BP 99/66
[2016-11-17] MEDS: SUMAtriptan SUCCINATE 100 MG TABLET PO PRN ×3 (11:09→23:50)
--- NOTE | 2016-11-17 11:46 | PDOC ---
G I PROGRESS NOTE Subjective Still not eating well. Says pc bloat/nausea/epigastric discomfort. Denies peptic symptoms in past. Physical Exam Lungs clear. RRR Abdomen soft, not distended. Tender at drain, epigastrium. Review of Relevant I have reviewed the following items gi (where applicable) has been applied. Labs Laboratory Tests Test 11/15/16 12:20 Lipase 457 U/L (73-393) --no recent labs. Medications Current Medications Levofloxacin/ Dextrose 150 ml @ 100 mls/hr 1X PREOP PRN IV PRIOR TO SURGERY Last administered on 11/13/16 14:29; Start 11/13/16 at 08:00; Stop 11/14/16 at 16:59; Status DC Ringer's Solution 1,000 ml @ 75 mls/hr [id number] IV Last administered on 11:29; Start 11/13/16 at 11:30; Stop 11/15/16 at 18:45; Status DC Cellulose 1 each STK-MED ONCE .ROUTE ; Start 11/13/16 at 12:03; Stop 11/13/16 at 12:04; Status DC Iohexol (Omnipaque 300 Mg/ml) 50 ml STK-MED ONCE .ROUTE Last administered on 15:06; Start 11/13/16 at 12:03; Stop 11/13/16 at 12:04; Status DC Bupivacaine HCl/ Epinephrine Bitart (Marcaine-Epi 0.5%-1:[id number]) 50 ml STK-MED ONCE .ROUTE Last administered on 11/13/16 14:37; Start 11/13/16 at 12:03; Stop 11/13/16 at 12:04; Status DC Propofol 20 ml @ As Directed STK-MED ONCE IV ; Start 11/13/16 at 13:35; Stop at 13:36; Status DC Lidocaine HCl (Lidocaine Pf 2% Vial) 5 ml STK-MED ONCE .ROUTE ; Start 11/13/16 at 13:36; Stop 11/13/16 at 13:37; Status DC Dexamethasone Sodium Phosphate (Decadron) 20 mg STK-MED ONCE .ROUTE ; Start at 13:36; Stop 11/13/16 at 13:37; Status DC Ondansetron HCl (Zofran) 4 mg STK-MED ONCE .ROUTE ; Start 11/13/16 at 13:36; Stop 11/13/16 at 13:37; Status DC Midazolam HCl (Versed) 2 mg STK-MED ONCE .ROUTE ; Start 11/13/16 at 13:39; Stop 11/13/16 at 13:40; Status DC Fentanyl Citrate (Fentanyl 5ml Vial) 250 mcg STK-MED ONCE .ROUTE ; Start at 13:40; Stop 11/13/16 at 13:41; Status DC Neostigmine Methylsulfate (Bloxiverz) 10 mg STK-MED ONCE .ROUTE ; Start at 15:23; Stop 11/13/16 at 15:24; Status DC Glycopyrrolate (Robinul) 1 mg STK-MED ONCE .ROUTE ; Start 11/13/16 at 15:23; Stop 11/13/16 at 15:24; Status DC Ondansetron HCl (Zofran) 4 mg STK-MED ONCE .ROUTE ; Start 11/13/16 at 15:39; Stop 11/13/16 at 15:40; Status DC Sevoflurane (Ultane) 60 ml STK-MED ONCE IH ; Start 11/13/16 at 15:39; Stop 11/13 at 15:40; Status DC Ketorolac Tromethamine (Toradol For Or Only) 30 mg STK-MED ONCE INJ ; Start at 15:47; Stop 11/13/16 at 15:48; Status DC Ondansetron HCl (Zofran) 4 mg PRN Q6HRS PRN IV NAUSEA/VOMITING; Start 11/13/16 at 16:00; Stop 11/13/16 at 22:00; Status DC Fentanyl Citrate (Fentanyl 2ml Vial) 25 mcg PRN Q5MIN PRN IV MILD PAIN; Start 11/13/16 at 16:00; Stop 11/13/16 at 22:00; Status DC Fentanyl Citrate (Fentanyl 2ml Vial) 50 mcg PRN Q5MIN PRN IV MODERATE PAIN; Start 11/13/16 at 16:00; Stop 11/13/16 at 22:00; Status DC Morphine Sulfate 1 mg PRN Q10MIN PRN IV SEVERE PAIN; Start 11/13/16 at 16:00; Stop 11/13/16 at 22:00; Status DC Ringer's Solution 1,000 ml @ 30 mls/hr Q24H IV ; Start 11/13/16 at 15:54; Stop 11/14/16 at 03:53; Status DC Lidocaine HCl 2 ml PRN 1X PRN ID PRIOR TO IV START; Start 11/13/16 at 16:00; Stop 11/13/16 at 22:00; Status DC Hydromorphone HCl (Dilaudid) 0.5 mg PRN Q10MIN PRN IV SEV PAIN, Second choice Last administered on 11/13/16 17:14; Start 11/13/16 at 16:00; Stop 11/13/16 at 22:00; Status DC Prochlorperazine Edisylate (Compazine) 5 mg PACU PRN PRN IV NAUSEA, MRX1 Last administered on 11/13/16 16:22; Start 11/13/16 at 16:00; Stop 11/13/16 at 22:00 ; Status DC Sodium Chloride (Normal Saline Flush) 3 ml QSHIFT PRN IV AFTER MEDS AND BLOOD DRAWS; Start 11/13/16 at 16:00 Sodium Chloride 1,000 ml @ 80 mls/hr [id number] IV Last administered on 18:42; Start 11/13/16 at 15:53 Dextrose (Dextrose 50%-Water Syringe) 12.5 gm PRN Q15MIN PRN IV SEE COMMENTS; Start 11/13/16 at 16:00 Oxycodone/ Acetaminophen (Percocet 5/325) 1 tab PRN Q4HRS PRN PO MILD PAIN, 1ST CHOICE Last administered on 11/17/16 08:35; Start 11/13/16 at 16:00 Oxycodone/ Acetaminophen (Percocet 5/325) 2 tab PRN Q4HRS PRN PO MODERATE PAIN , SEVERE PAIN Last administered on 11/15/16 20:25; Start 11/13/16 at 16:00 Hydromorphone HCl (Dilaudid) 0.2 mg PRN Q1HR PRN IV PAIN Last administered on 14:56; Start 11/13/16 at 16:00 Ondansetron HCl (Zofran) 4 mg PRN Q6HRS PRN IV NAUESA, 1ST CHOICE Last administered on 11/16/16t 15:45; Start 11/13/16 at 16:00 Hydromorphone HCl (Dilaudid) 2 mg STK-MED ONCE .ROUTE ; Start 11/13/16 at 16:17 ; Stop 11/13/16 at 16:18; Status DC Scopolamine (Transderm-Scop) 1 patch 1X ONCE TD Last administered on t 16:45; Start 11/13/16 at 16:45; Stop 11/13/16 at 16:48; Status DC Levofloxacin/ Dextrose 100 ml @ 100 mls/hr 1X ONCE IV ; Start 11/14/16 at 12: 00; Stop 11/14/16 at 13:23; Status DC Ringer's Solution 1,000 ml @ 75 mls/hr [id number] IV ; Start 11/14/16 at 12:15; Stop 11/15/16 at 18:45; Status DC Fentanyl Citrate (Fentanyl 2ml Vial) 100 mcg STK-MED ONCE .ROUTE ; Start at 12:07; Stop 11/14/16 at 12:08; Status DC Propofol 20 ml @ As Directed STK-MED ONCE IV ; Start 11/14/16 at 12:07; Stop at 12:08; Status DC Lidocaine HCl (Lidocaine Pf 2% Vial) 5 ml STK-MED ONCE .ROUTE ; Start 11/14/16 at 12:07; Stop 11/14/16 at 12:08; Status DC Succinylcholine Chloride (Anectine) 200 mg STK-MED ONCE .ROUTE ; Start 11/14/16 at 12:08; Stop 11/14/16 at 12:09; Status DC Iohexol (Omnipaque 300 Mg/ml) 50 ml STK-MED ONCE .ROUTE ; Start 11/14/16 at 12: 13; Stop 11/14/16 at 12:14; Status DC Iohexol (Omnipaque 300 Mg/ml) 50 ml STK-MED ONCE INT CAT Last administered on t 13:17; Start 11/14/16 at 13:17; Stop 11/14/16 at 13:23; Status DC Levofloxacin/ Dextrose (LEVAQUIN 500mg PREMIX) 500 mg STK-MED ONCE IV ; Start at 12:02; Stop 11/15/16 at 08:43; Status DC Cetirizine HCl (ZyrTEC) 10 mg DAILY PO Last administered on 11/17/16 08:35; Start 11/16/16 at 12:30 Sumatriptan Succinate (Imitrex) 100 mg PRN Q2HR PRN PO HEADACHE Last administered on 11/17/16 11:09; Start 11/17/16 at 11:00 Active Scripts Active Reported Aleve (Naproxen Sodium) 220 Mg Capsule 220 Mg PO BID PRN Benadryl (Diphenhydramine Hcl) 25 Mg Capsule 1 Cap PO QHS PRN Multivitamins (Multivitamin) 1 Each Tablet 1 Tab PO DAILY Flonase Allergy Relief (Fluticasone Propionate) 9.9 Ml [place].susp 2 Sprays NS DAILY Zyrtec (Cetirizine Hcl) 10 Mg Capsule 10 Mg PO DAILY Imitrex (Sumatriptan Succinate) 100 Mg Tablet 1 Tab PO UD PRN Vitals/I & O Vital Sign - Last 24 Hours 11/16/16 11/16/16 11/16/16 11/16/16 16:00 19:00 20:00 23:00 Temp 97.9 97.7 97.7 97.9 97.7 97.7 Pulse 56 56 64 Resp 18 18 18 B/P (MAP) 103/67 (79) 100/63 (75) 102/64 (77) Pulse Ox 97 96 93 O2 Delivery Room Air Room Air Room Air Room Air 11/17/16 11/17/16 11/17/16 11/17/16 06:57 08:35 09:35 11:00 Temp 97.5 97.9 97.5 97.9 Pulse 54 66 Resp 18 16 16 16 B/P (MAP) 89/55 (66) 99/66 (77) Pulse Ox 90 94 O2 Delivery Room Air Room Air Room Air Room Air Intake and Output 11/17/16 11/17/16 11/18/16 15:00 23:00 07:00 Intake Total 200 ml Balance 200 ml Assessment Pc pain, nausea persist. Plan of Care: Continue current Tx, Mgmt Plan of Care Note Try anti-secretory. Check labs. ALEJO HAYNES MD Nov 17, 2016 11:46
--- NOTE | 2016-11-17 11:52 | PDOC ---
SURGICAL PROGRESS NOTE Subjective Pt with c/o persistent abd pain and poor intake Vital Signs Vital Signs Date Time Temp Pulse Resp B/P (MAP) Pulse Ox O2 Delivery O2 Flow Rate FiO2 11/17/16 11:00 97.9 66 16 99/66 (77) 94 Room Air 97.9 I&O Intake and Output 11/18/16 07:00 Intake Total 200 ml Balance 200 ml Intake Oral 200 ml General: Alert, Oriented X3, mild distress Abdomen: Soft, Other (mild TTP) Labs Laboratory Tests Test 11/15/16 12:20 Lipase 457 U/L (73-393) Assessment/Plan s/p lap regan cont bowel rest and supportive care agree with plan per GI Problems: ANAI GARCIA MD Nov 17, 2016 11:52
[2016-11-17] MEDS ORDERED: MAG HYDROX/ALUMINUM HYD/SIMETH 30 ML ORAL.SUSP PO PRN (12:00)
[2016-11-17 12:33] LABS: HEMATOCRIT 41.3 % (36.0-47.0); HEMOGLOBIN 13.9 g/dL (12.0-15.5); RED BLOOD COUNT 4.37 x10^6/uL (3.50-5.40); RED CELL DISTRIBUTION WIDTH 13.1 % (11.5-14.5)
[2016-11-17] MEDS: FAMOTIDINE 20 MG TABLET. PO SCH ×2 (12:39→19:56)
[2016-11-17 12:44] LABS: ALBUMIN 3.3 g/dL (3.4-5.0); ALBUMIN/GLOBULIN RATIO 0.9 (1.0-1.7); CALCIUM 8.7 mg/dL (8.5-10.1); CREATININE 0.9 mg/dL (0.6-1.0); GFR 70.5; POTASSIUM 3.8 mmol/L (3.5-5.1); TOTAL BILIRUBIN 0.7 mg/dL (0.2-1.0); TOTAL PROTEIN 7.1 g/dL (6.4-8.2)
[2016-11-17 15:00] VITALS: BP 118/73
[2016-11-17] MEDS ORDERED: IV 1/2 NORMAL SALINE 500 ML IV ONE ×2 (15:30→16:30)
[2016-11-17 16:45] VITALS: BP 128/80
[2016-11-17 19:00] VITALS: BP 113/76
[2016-11-17 23:00] VITALS: BP 102/56
[2016-11-18 03:00] VITALS: BP 102/64
[2016-11-18] MEDS: IV 1/2 NORMAL SALINE 1,000 ML IV SCH (06:14)
[2016-11-18 07:00] VITALS: BP 100/54
[2016-11-18] MEDS: FAMOTIDINE 20 MG TABLET. PO SCH (10:01)
[2016-11-18] MEDS: CETIRIZINE HCL 10 MG TABLET. PO SCH (10:02)
--- NOTE | 2016-11-18 10:04 | PDOC ---
SURGICAL PROGRESS NOTE Subjective she reports still not eating--feels that food gets stuck , epigastric She does tell me this has been going on for 3 weeks(she was only eating liquids at home)--seen thought was her gallbladder Vital Signs Vital Signs Date Time Temp Pulse Resp B/P (MAP) Pulse Ox O2 Delivery O2 Flow Rate FiO2 11/18/16 07:40 Room Air 11/18/16 07:00 97.5 64 16 100/54 (69) 94 97.5 General: Alert, Oriented X3, Cooperative, No acute distress Abdomen: Soft, Other (nico drainage serous) Labs Laboratory Tests Test 11/17/16 12:20 White Blood Count 8.0 x10^3/uL (4.0-11.0) Red Blood Count 4.37 x10^6/uL (3.50-5.40) Hemoglobin 13.9 g/dL (12.0-15.5) Hematocrit 41.3 % (36.0-47.0) Mean Corpuscular Volume 95 fL (79-100) Mean Corpuscular Hemoglobin 32 pg (25-35) Mean Corpuscular Hemoglobin Concent 34 g/dL (31-37) Red Cell Distribution Width 13.1 % (11.5-14.5) Platelet Count 290 x10^3/uL (140-400) Sodium Level 141 mmol/L (136-145) Potassium Level 3.8 mmol/L (3.5-5.1) Chloride Level 104 mmol/L (98-107) Carbon Dioxide Level 31 mmol/L (21-32) Anion Gap 6 (6-14) Blood Urea Nitrogen 9 mg/dL (7-20) Creatinine 0.9 mg/dL (0.6-1.0) Estimated GFR (Cockcroft-Gault) 70.5 BUN/Creatinine Ratio 10 (6-20) Glucose Level 89 mg/dL (70-99) Calcium Level 8.7 mg/dL (8.5-10.1) Total Bilirubin 0.7 mg/dL (0.2-1.0) Aspartate Amino Transf (AST/SGOT) 54 U/L (15-37) Alanine Aminotransferase (ALT/SGPT) 98 U/L (14-59) Alkaline Phosphatase 82 U/L (46-116) Total Protein 7.1 g/dL (6.4-8.2) Albumin 3.3 g/dL (3.4-5.0) Albumin/Globulin Ratio 0.9 (1.0-1.7) Lipase 230 U/L (73-393) Laboratory Tests Test 11/17/16 12:20 White Blood Count 8.0 x10^3/uL (4.0-11.0) Red Blood Count 4.37 x10^6/uL (3.50-5.40) Hemoglobin 13.9 g/dL (12.0-15.5) Hematocrit 41.3 % (36.0-47.0) Mean Corpuscular Volume 95 fL (79-100) Mean Corpuscular Hemoglobin 32 pg (25-35) Mean Corpuscular Hemoglobin Concent 34 g/dL (31-37) Red Cell Distribution Width 13.1 % (11.5-14.5) Platelet Count 290 x10^3/uL (140-400) Sodium Level 141 mmol/L (136-145) Potassium Level 3.8 mmol/L (3.5-5.1) Chloride Level 104 mmol/L (98-107) Carbon Dioxide Level 31 mmol/L (21-32) Anion Gap 6 (6-14) Blood Urea Nitrogen 9 mg/dL (7-20) Creatinine 0.9 mg/dL (0.6-1.0) Estimated GFR (Cockcroft-Gault) 70.5 BUN/Creatinine Ratio 10 (6-20) Glucose Level 89 mg/dL (70-99) Calcium Level 8.7 mg/dL (8.5-10.1) Total Bilirubin 0.7 mg/dL (0.2-1.0) Aspartate Amino Transf (AST/SGOT) 54 U/L (15-37) Alanine Aminotransferase (ALT/SGPT) 98 U/L (14-59) Alkaline Phosphatase 82 U/L (46-116) Total Protein 7.1 g/dL (6.4-8.2) Albumin 3.3 g/dL (3.4-5.0) Albumin/Globulin Ratio 0.9 (1.0-1.7) Lipase 230 U/L (73-393) Problem List s/p lap regan, ERCP continued difficulty with diet--GI following Problems: DANIEL LEWIS [employer] Nov 18, 2016 10:04
[2016-11-18] MEDS ORDERED: ACETAMINOPHEN 500 MG TABLET PO PRN (10:15)
[2016-11-18 11:05] VITALS: BP 111/72
--- NOTE | 2016-11-18 11:15 | PDOC ---
Subjective: Subjective: Doesn't want to eat "hard" food, scared to vomit because abd sore. Prior to cholecystectomy, had vomiting and abd pain. Again discussed new onset heartburn 3 weeks ago, tried PPI, improved, so stopped. Feels food sits in epigastrium. Would like to DC. Objective: Objective: D/w RN - migraine causing pain around eyes radiating to back of head, not eating much, wants to go home. Tried off Percocet, just Tylenol for pain in case contributing. D/w Nany/surgery earlier. Vital Signs: Vital Signs Date Time Temp Pulse Resp B/P (MAP) Pulse Ox O2 Delivery O2 Flow Rate FiO2 11/18/16 07:40 Room Air 11/18/16 07:00 97.5 64 16 100/54 (69) 94 97.5 Labs: Laboratory Tests Test 11/17/16 12:20 White Blood Count 8.0 x10^3/uL Red Blood Count 4.37 x10^6/uL Hemoglobin 13.9 g/dL Hematocrit 41.3 % Mean Corpuscular Volume 95 fL Mean Corpuscular Hemoglobin 32 pg Mean Corpuscular Hemoglobin Concent 34 g/dL Red Cell Distribution Width 13.1 % Platelet Count 290 x10^3/uL Sodium Level 141 mmol/L Potassium Level 3.8 mmol/L Chloride Level 104 mmol/L Carbon Dioxide Level 31 mmol/L Anion Gap 6 Blood Urea Nitrogen 9 mg/dL Creatinine 0.9 mg/dL Estimated GFR (Cockcroft-Gault) 70.5 BUN/Creatinine Ratio 10 Glucose Level 89 mg/dL Calcium Level 8.7 mg/dL Total Bilirubin 0.7 mg/dL Aspartate Amino Transf (AST/SGOT) 54 U/L Alanine Aminotransferase (ALT/SGPT) 98 U/L Alkaline Phosphatase 82 U/L Total Protein 7.1 g/dL Albumin 3.3 g/dL Albumin/Globulin Ratio 0.9 Lipase 230 U/L PE: GEN: NAD LUNGS: CTAB HEART: RRR ABD: tender around incisions - also periumbilical, BS+, ЮЛИЯ serosang NEURO/PSYCH: A & O 3 A/P: S/p cholecystectomy and ERCP Abd pain Decreased appetite/early satiety Migraine -- D/w Dr. Davis. Home per surgery. GI-tipton, restart PPI (has pantoprazole at home) QD. Follow- up PRN or if symptoms ongoing. D/w RN. Also might need Miralax or similar PRN, particularly if to continue pain meds. NAVARRO HIGUERA Nov 18, 2016 11:15
[2016-11-18] MEDS ORDERED: OXYC1TAB7 PO (11:28)
[2016-11-18] MEDS: oxyCODONE/APAP 5/325 1 TAB TABLET PO PRN (12:41)
== END 2016-11-18 13:08 | disposition home or self-care (01) | DRG 419 ==
LOC: SURG 10:40 → EDSTATUS 12:15 → 4 NORTH 15:53
PROVIDERS: ADMIT Surgery; ATTEND Surgery
PROC: 0FT44ZZ Resection of Gallbladder, Percutaneous Endoscopic Approach (ICD-10-PCS; 2016-11-13)
PROC: BF121ZZ Fluoroscopy of Gallbladder using Low Osmolar Contrast (ICD-10-PCS; 2016-11-13)
PROC: 0FC98ZZ Extirpation of Matter from Common Bile Duct, Via Natural or Artificial Opening Endoscopic (ICD-10-PCS; principal; 2016-11-13 12:15)
DX: K80.70 Calculus of gallbladder and bile duct without cholecystitis without obstruction (principal); G43.909 Migraine, unspecified, not intractable, without status migrainosus; K21.9 Gastro-esophageal reflux disease without esophagitis
CPT/HCPCS: 36415; 74300; 74328; 80053; 81025; 82248; 83690; 85007; 85025; 85027; 85610; 88304; C1726; C1769; J0330; J0780; J1100; J1170; J1885; J1956; J2250; J2405; J2704; J2710; J3010; J3490; J7030; J7120; Q9967; J2001